=== PATIENT | male | born 1955 | race African-American/Black ===

== ENCOUNTER 2024-06-09 13:01 | Emergency (ER) | payer MEDICAID, MEDICARE ==
[~2024-06-09] VITALS: Ht 182.9 cm; Wt 72.0 kg
[~2024-06-09 13:01] MED LIST: ACET-283 PO; BICT1TAB PO; TAMS-11 MT
[2024-06-09 13:22] VITALS: O2SAT 97
[2024-06-09] MEDS: IBUPROFEN 800MG TABLET PO ONE (14:51)
[2024-06-09] MEDS ORDERED: ACET-2708 MT (15:24)
[2024-06-09 15:35] VITALS: BP 109/76; PULSE 84; RESP 18; TEMP 36.8; O2SAT 97
== END 2024-06-09 15:38 | disposition home or self-care (01) ==
LOC: ER 13:14
DX: S16.1XXA Strain of muscle, fascia and tendon at neck level, initial encounter (principal); S39.012A Strain of muscle, fascia and tendon of lower back, initial encounter; Z79.899 Other long term (current) drug therapy; V43.52XA Car driver injured in collision with other type car in traffic accident, initial encounter; Y93.89 Activity, other specified; Y92.89 Other specified places as the place of occurrence of the external cause; Y99.8 Other external cause status
CPT/HCPCS: 72040; 72100; 99284